=== PATIENT | female | born 1970 | race Two or more races ===

== ENCOUNTER → 2019-12-15 12:51 | Outpatient (BNVA) | payer OTHER, SELFPAY | PROVIDERS: PCP Internal Medicine; Referring Provider Internal Medicine; Visit Provider Internal Medicine Endocrinology, Diabetes & Metabolism | DX: E66.01 Morbid (severe) obesity due to excess calories (principal); Z68.41 Body mass index [BMI] 40.0-44.9, adult; E04.2 Nontoxic multinodular goiter; E55.9 Vitamin D deficiency, unspecified | CPT/HCPCS: 99204; 99214 ==

== ENCOUNTER 2019-12-16 13:47 | Outpatient (REF) | payer OTHER, SELFPAY ==
[2019-12-16 15:23] LABS: Albumin Level 4.4 g/dL (3.5-5.0)
[2019-12-16 15:25] LABS: Calcium 9.6 mg/dL (8.4-10.2)
[2019-12-16 15:55] LABS: Free T4 (Free Thyroxine) 1.08 ng/dL (0.71-1.85); Thyroid Stimulating Hormone 1.83 mIU/mL (0.32-4.0); Vitamin D 25-OH Total 24.4 ng/mL (>30)
== END 2019-12-16 13:48 | disposition home or self-care (01) ==
LOC: HO.LAB 13:47
PROVIDERS: PCP Internal Medicine; Visit Provider Internal Medicine Endocrinology, Diabetes & Metabolism
DX: E04.2 Nontoxic multinodular goiter (principal); E55.9 Vitamin D deficiency, unspecified
CPT/HCPCS: 36415; 82040; 82306; 82310; 84439; 84443

== ENCOUNTER → 2020-06-22 10:03 | Outpatient (BNVA) | payer OTHER, SELFPAY | PROVIDERS: PCP Internal Medicine; Visit Provider Internal Medicine Endocrinology, Diabetes & Metabolism ==

== ENCOUNTER 2020-06-26 14:20 | Outpatient (REF) | payer OTHER, SELFPAY ==
[2020-06-26 15:51] LABS: Free T4 (Free Thyroxine) 0.91 ng/dL (0.71-1.85); Thyroid Stimulating Hormone 1.56 uIU/mL (0.32-4.0); Vitamin D 25-OH Total 28.2 ng/mL (>30)
== END 2020-06-26 14:21 | disposition home or self-care (01) ==
LOC: HO.LAB 14:20
PROVIDERS: PCP Internal Medicine; Visit Provider Internal Medicine Endocrinology, Diabetes & Metabolism
DX: E04.2 Nontoxic multinodular goiter (principal); E55.9 Vitamin D deficiency, unspecified
CPT/HCPCS: 36415; 82306; 84439; 84443

== ENCOUNTER → 2020-08-20 10:31 | Outpatient (BNVA) | payer OTHER, SELFPAY | PROVIDERS: PCP Internal Medicine; Visit Provider Dietitian, Registered | DX: E66.01 Morbid (severe) obesity due to excess calories (principal) | CPT/HCPCS: 97802 ==

== ENCOUNTER → 2020-08-28 14:02 | Outpatient (REF) | payer OTHER, SELFPAY | LOC: HO.SL 14:02 | PROVIDERS: PCP Internal Medicine; Visit Provider Internal Medicine | DX: G47.30 Sleep apnea, unspecified (principal) | CPT/HCPCS: 95806 ==

== ENCOUNTER 2020-09-21 15:27 | Emergency (ER) | payer OTHER, SELFPAY ==
--- NOTE | ~2020-09-21 | CT_ITS ---
EXAMINATION: CT ABDOMEN AND PELVIS WITH CONTRAST CLINICAL INFORMATION: Right upper quadrant/left lower quadrant abdominal pain COMPARISON: None TECHNIQUE: Multidetector volumetric images were obtained from the superior aspect of the liver through the pubic symphysis following administration 85 mL of Omnipaque 350 intravenous contrast. Sagittal and coronal reformatted images were obtained on the technologist's workstation. Oral contrast: No This CT examination was performed using dose optimization techniques as appropriate, variously including the following: *Automated exposure control *Adjustment of mA and/or kV according to patient size (this includes techniques or standardized protocols for targeted exams where dose is matched to indication/reason for exam; i.e. extremities or head) *Use of iterative reconstruction technique DLP: 796 mGy-cm FINDINGS: LUNG BASES: The visualized lung bases are unremarkable. LIVER, GALLBLADDER, AND BILIARY TREE: The liver is normal in size, shape, and attenuation. No focal hepatic lesion or biliary ductal dilatation is present. The gallbladder is unremarkable with no evidence of radiopaque gallstones, gallbladder wall thickening, or obvious pericholecystic inflammatory changes. PANCREAS: Unremarkable. SPLEEN: Unremarkable. ADRENAL GLANDS: Unremarkable. KIDNEYS AND URETERS: The kidneys are normal in size, shape, and attenuation. There is an ill-defined hypoechoic region in the mid right kidney extending from the renal sinus outwards measuring about a centimeter in size. No hydronephrosis, hydroureter, or calculi seen. No perinephric stranding. BLADDER: Unremarkable. GASTROINTESTINAL TRACT: The small and large bowel are unremarkable. The appendix is unremarkable. ABDOMINAL WALL: No significant hernia is appreciated. LYMPH NODES: Normal. VASCULAR: Unremarkable. PELVIC VISCERA: An anteverted uterus is present. A left ovarian cyst is present measuring 2.8 cm. No free intraperitoneal fluid is seen. OSSEOUS STRUCTURES: Unremarkable. CT/CT abdomen pelvis w con IMPRESSION: 1. Small ill-defined area of hypoattenuation of uncertain significance in the right kidney could be a foci of bacterial nephritis. Please correlate with urinalysis. A follow-up renal ultrasound exam when the patient is stable may be of value. 2. Left ovarian cyst. This needs no further follow-up.
[2020-09-21 15:38] VITALS: BP 119/67; PULSE 74; RESP 16; TEMP 36.5; O2SAT 100; BMI 41.5
[2020-09-21 16:00] VITALS: BP 149/55; PULSE 73; RESP 16; O2SAT 99
--- NOTE | 2020-09-21 17:58 | ED.ABDPAIN ---
HPI - Abdominal Pain General Chief Complaint: Abdominal Pain Stated Complaint: Abdominal pain Time Seen by Provider: 09/21/20 17:46 Source: patient Mode of arrival: ambulatory History of Present Illness HPI narrative: 49-year-old female with a past medical history of anxiety/depression, GERD, nontoxic multinodular goiter, vitamin-D deficiency, presenting to the ED complaining of LLQ abdominal pain x2 days, nonradiating. Denies associated fever, nausea, vomiting, diarrhea, dysuria/hematuria, flank pain, vaginal bleeding/discharge. P.o. intake WNSuleiman BALL elicited complaint: abdominal pain Related Data Home Medications Medication Instructions Recorded Confirmed cetirizine 10 mg capsule 10 mg PO DAILY 12/15/19 09/21/20 omeprazole 20 mg capsule,delayed 20 mg PO DAILY 12/15/19 09/21/20 release ascorbate calcium (vitamin C) 500 500 mg PO DAILY 06/22/20 09/21/20 mg tablet fluticasone propionate 50 1 spray INTRANASAL BID 06/22/20 09/21/20 mcg/actuation nasal spray,suspension loratadine 10 mg tablet 10 mg PO DAILY 07/26/20 09/21/20 Previous Rx's Medication Instructions Recorded hydrocortisone-acetic acid 1 %-2 % 4 drp OTIC (EAR) LEFT TID #10 ml 05/21/20 ear drops cholecalciferol (vitamin D3) 125 125 mcg PO DAILY 90 Days #90 cap 08/16/20 mcg (5,000 unit) capsule albuterol sulfate 90 mcg/actuation 2 puff INHALATION Q4-6H PRN #8.5 g 08/27/20 aerosol inhaler meloxicam 15 mg tablet 15 mg PO DAILY #90 tab 08/27/20 dicyclomine 20 mg PO QID PRN #14 tab 09/21/20 Allergies Allergy/AdvReac Type Severity Reaction Status Date / Time No Known Allergies Allergy Verified 09/21/20 15:43 Review of Systems Review of Systems Constitutional: No Fever, No Chills, No Fatigue, No Malaise Cardiovascular: No Chest Pain, No SOB Respiratory: No Cough, No Dyspnea Gastrointestinal: No Nausea, No Vomiting, No Diarrhea, No Constipation, + Abdominal pain Genitourinary: No Dysuria, No Urinary Frequency, No Hematuria, No Flank Pain Musculoskeletal: No joint pain, No Myalgias Skin: No Skin Lesions, No rash Neuro: No Weakness, No Numbness, No Paresthesias Yes all other systems are reviewed and are negative Physical Exam Vital Signs: Vital Signs: Last Vital Signs Temp 97.7 F 09/21/20 15:38 Pulse 68 09/21/20 20:00 Resp 14 09/21/20 20:00 BP 123/43 L 09/21/20 20:00 Pulse Ox 100 09/21/20 20:00 Body Mass Index 41.5 Const: General: cooperative, healthy appearing and no acute distress Orientation/consciousness: patient oriented x3 Limitations: no limitations HENMT: Head: Yes normal to inspection Ears: hearing grossly normal bilaterally General nose exam: Normal external nose present Face and sinus: Yes normal facial exam Eyes: General: appearance normal, both eyes and all related structures EOM: EOMs intact bilaterally Neck: Neck: Yes normal visual inspection and Yes no meningeal signs Resp: Effort & Inspection: normal respiratory effort and no respiratory distress Cardio: Rate: regular rate GI: Inspection: Yes normal to inspection Palpation (GI): Soft to palpation, Tenderness to palpation present (GI) in the LLQ and in the RUQ, no guarding and not rigid : General: Yes no CVA tenderness Back/Spine/Pelvis: Back: no CVA tenderness Skin: Rashes: no rashes Wounds: no wounds Neuro: General: patient oriented x3 and no meningeal signs Gait exam (Neuro): Normal gait present Extrem: General: Yes normal to inspection Course Course Course Narrative: -labs unremarkable, UA negative CT abdomen pelvis w con IMPRESSION: 1. Small ill-defined area of hypoattenuation of uncertain significance in the right kidney could be a foci of bacterial nephritis. Please correlate with urinalysis. A follow-up renal ultrasound exam when the patient is stable may be of value. 2. Left ovarian cyst. This needs no further follow-up. >> results discussed with patient including worrisome signs and symptoms and strict return precautions, she verbalized understanding of feel it is safe for discharge to follow-up with PCP/GI MDM - Abdominal Pain MDM Narrative Medical decision making narrative: 49-year-old female with a past medical history of anxiety/depression, GERD, nontoxic multinodular goiter, vitamin-D deficiency, presenting to the ED complaining of LLQ abdominal pain x2 days, nonradiating. On exam VS as, NAD/nontoxic, abdomen soft with RUQ/LLQ TTP, no rebound or guarding, no CVAT. Concern for diverticulitis vs cholecystitis/lithiasis or pancreatitis vs colitis. Lower concern for appendicitis/UTI or pyelo/renal stone Plan: Labs, UA, CT AP, IVF, symptomatic treatment, reassess Lab Data Result diagrams: 09/21/20 18:06 09/21/20 18:06 Labs: Lab Results 09/21/20 09/21/20 09/21/20 Range/Units 18:06 18:06 18:06 WBC 9.9 (4.8-10.8) X10*3/uL RBC 4.68 (4.20-5.50) X10*6/uL Hgb 12.8 (12.0-16.0) g/dl Hct 39.2 (37-47) % MCV 83.8 (80-98) fL MCH 27.4 (27.0-33.0) pg MCHC 32.7 (31.0-35.0) g/dl RDW 13.4 (11.0-16.0) % Plt Count 307 (160-400) X10*3/uL MPV 9.4 (9.4-12.3) fL Immature Gran % (Auto) 0.2 (0.0-0.4) % Neut % (Auto) 55.0 (45-73) % Lymph % (Auto) 37.5 (20-40) % [place] % (Auto) 5.4 (2-11) % Eos % (Auto) 1.5 (0-4) % Baso % (Auto) 0.4 (0-2) % Lymph # (Auto) 3.7 (1.2-4.9) X10*3/uL [place] # (Auto) 0.5 (0.1-1.2) X10*3/uL Eos # (Auto) 0.2 (0.0-0.4) X10*3/uL Baso # (Auto) 0.0 (0.0-0.2) X10*3/uL Abs Immat Gran (auto) 0.02 (0.00-0.03) X10*3/uL Absolute Neuts (auto) 5.5 (2.0-8.3) X10*3/uL Absolute Nucleated RBC 0.000 (0.0-0.012) X10*3/uL Nucleated RBC % (auto) 0.0 (0.0-0.2) /100WBC Sodium 139 (135-145) mmol/L Potassium 4.0 (3.3-5.1) mmol/L Chloride 105 (96-108) mmol/L Carbon Dioxide 24 (22-29) mmol/L Anion Gap 14 (12-20) BUN 9 (9-16) mg/dL Creatinine 0.75 (0.5-1.4) mg/dL Estim Creat Clear Calc 104.3 Estimated GFR > 60 Random Glucose 91 (60-115) mg/dL Calcium 9.3 (8.4-10.2) mg/dL Magnesium 1.9 (1.6-2.6) mg/dL Total Bilirubin 0.4 (0.0-1.0) mg/dL Direct Bilirubin 0.2 (0.0-0.5) mg/dL AST 17 (5-31) U/L ALT 8 (0-31) U/L Alkaline Phosphatase 89 (39-117) U/L Total Protein 7.0 (6.5-8.0) g/dL Albumin 4.0 (3.5-5.0) g/dL Lipase 35 (8-78) U/L Urine Color Urine Appearance Urine pH (5.0-8.0) Ur Specific [place] (1.005-1.025) Urine Protein (NEG-TRACE) MG/DL Urine Glucose (UA) (NEG) MG/DL Urine Ketones (NEG) MG/DL Urine Blood (NEG) Urine Nitrite (NEG) Ur Leukocyte Esterase (NEG) Urine Test NEGATIVE (NEGATIVE) 09/21/20 Range/Units 18:06 WBC (4.8-10.8) X10*3/uL RBC (4.20-5.50) X10*6/uL Hgb (12.0-16.0) g/dl Hct (37-47) % MCV (80-98) fL MCH (27.0-33.0) pg MCHC (31.0-35.0) g/dl RDW (11.0-16.0) % Plt Count (160-400) X10*3/uL MPV (9.4-12.3) fL Immature Gran % (Auto) (0.0-0.4) % Neut % (Auto) (45-73) % Lymph % (Auto) (20-40) % [place] % (Auto) (2-11) % Eos % (Auto) (0-4) % Baso % (Auto) (0-2) % Lymph # (Auto) (1.2-4.9) X10*3/uL [place] # (Auto) (0.1-1.2) X10*3/uL Eos # (Auto) (0.0-0.4) X10*3/uL Baso # (Auto) (0.0-0.2) X10*3/uL Abs Immat Gran (auto) (0.00-0.03) X10*3/uL Absolute Neuts (auto) (2.0-8.3) X10*3/uL Absolute Nucleated RBC (0.0-0.012) X10*3/uL Nucleated RBC % (auto) (0.0-0.2) /100WBC Sodium (135-145) mmol/L Potassium (3.3-5.1) mmol/L Chloride (96-108) mmol/L Carbon Dioxide (22-29) mmol/L Anion Gap (12-20) BUN (9-16) mg/dL Creatinine (0.5-1.4) mg/dL Estim Creat Clear Calc Estimated GFR Random Glucose (60-115) mg/dL Calcium (8.4-10.2) mg/dL Magnesium (1.6-2.6) mg/dL Total Bilirubin (0.0-1.0) mg/dL Direct Bilirubin (0.0-0.5) mg/dL AST (5-31) U/L ALT (0-31) U/L Alkaline Phosphatase (39-117) U/L Total Protein (6.5-8.0) g/dL Albumin (3.5-5.0) g/dL Lipase (8-78) U/L Urine Color YELLOW Urine Appearance CLEAR Urine pH 6.0 (5.0-8.0) Ur Specific [place] 1.020 (1.005-1.025) Urine Protein NEG (NEG-TRACE) MG/DL Urine Glucose (UA) NEG (NEG) MG/DL Urine Ketones NEG (NEG) MG/DL Urine Blood NEG (NEG) Urine Nitrite NEG (NEG) Ur Leukocyte Esterase NEG (NEG) Urine Test (NEGATIVE) Discharge Plan Discharge Clinical Impression: Abdominal pain Patient Disposition: Home, Self-Care Instructions: Abdominal Pain (ED) Additional Instructions: your blood work and urine were reassuring today in the ED Your CT scan showed a left ovarian cyst which are aware of, and a small ill-defined area in your right kidney however your urine and blood work were reassuring Your staying hydrated at home Lillie will help with abdominal cramping Follow-up with her primary care doctor as well as a GI doctor If her symptoms persist or worsen, become unbearable, you develop fever, persistent nausea or vomiting please return to the ED Prescriptions: New dicyclomine 20 mg tablet 20 mg PO QID PRN (Reason: abdominal cramping) Qty: 14 RF: 0 No Action hydrocortisone-acetic acid 1-2 % drops 4 drp otic (ear) left TID Qty: 10 RF: 0 cholecalciferol (vitamin D3) 125 mcg (5,000 unit) capsule 125 mcg PO DAILY 90 Days Qty: 90 RF: 2 meloxicam 15 mg tablet 15 mg PO DAILY Qty: 90 RF: 0 albuterol sulfate [Ventolin HFA] 90 mcg/actuation HFA aerosol inhaler 2 puff inhalation Q4-6H PRN (Reason: shortness of breath or wheezing) Qty: 8.5 RF: 2 loratadine [Allergy Relief (loratadine)] 10 mg tablet 10 mg PO DAILY RF: 0 omeprazole 20 mg capsule,delayed release(DR/EC) 20 mg PO DAILY RF: 0 All Day Allergy (cetirizine) 10 mg capsule 10 mg PO DAILY RF: 0 fluticasone propionate 50 mcg/actuation spray,suspension 1 spray intranasal BID RF: 0 ascorbate calcium (vitamin C) 500 mg tablet 500 mg PO DAILY RF: 0 Referrals: Raymond Sarabia MD [Physician] - 1 week (as needed) [facility] Past Medical History Attestation statement: The following information was validated with the patient. Medical History Anxiety and depression GERD (gastroesophageal reflux disease) Morbid obesity Non-toxic multinodular goiter Vitamin D deficiency Surgical History History of esophagogastroduodenoscopy (EGD) Hx of tonsillectomy Hx of tubal ligation Family History Family History Mother Asthma Eye cancer Father Heart attack High blood pressure Social History Social History Housing: Apartment Alcohol intake: never Patient Tobacco Use Status: Never used Tobacco Advance Directives: No Advance Directives Information Provided: No Patient : No Current occupational status: employed
[2020-09-21 18:00] VITALS: BP 149/55; PULSE 73; RESP 16; O2SAT 99
[2020-09-21] MEDS: 0.9 % Sodium Chloride 1,000 ML 999 ML IVCONT (18:08)
[2020-09-21] MEDS: Ketorolac Tromethamine 15 MG/ML VIAL IVPUSH (18:11)
[2020-09-21] MEDS: ondansetron HCL 4 MG/2 ML VIAL IVPUSH (18:11)
[2020-09-21] MEDS: Famotidine/PF 20 MG/2 ML VIAL IVPUSH (18:11)
[2020-09-21 18:16] LABS: MANUAL DIFF FLAG NO
[2020-09-21 18:18] LABS: Basophils Percent Auto 0.4 % (0-2); Eosinophils Absolute Auto 0.2 X10*3/uL (0.0-0.4); Eosinophils Percent Auto 1.5 % (0-4); Hematocrit 39.2 % (37-47); Hemoglobin 12.8 g/dl (12.0-16.0); Imm Gran Abs Auto 0.02 X10*3/uL (0.00-0.03); Imm Gran Pct Auto 0.2 % (0.0-0.4); Lymphocytes Absolute Auto 3.7 X10*3/uL (1.2-4.9); Lymphocytes Percent Auto 37.5 % (20-40); Mean Corpuscular HGB Conc 32.7 g/dl (31.0-35.0); Mean Corpuscular Hemoglobin 27.4 pg (27.0-33.0); Mean Corpuscular Volume 83.8 fL (80-98); Mean Platelet Volume 9.4 fL (9.4-12.3); Monocytes Absolute Auto 0.5 X10*3/uL (0.1-1.2); Monocytes Percent Auto 5.4 % (2-11); Neutrophils Absolute Auto 5.5 X10*3/uL (2.0-8.3); Platelet Count 307 X10*3/uL (160-400); Red Blood Count 4.68 X10*6/uL (4.20-5.50); Red Cell Distribution Width 13.4 % (11.0-16.0); White Blood Count 9.9 X10*3/uL (4.8-10.8)
[2020-09-21 18:21] LABS: Glucose Urine UA NEG (NEG); Leukocyte Esterase Urine NEG (NEG); Nitrite Urine NEG (NEG); Urine Blood NEG (NEG); Urine Ketones NEG (NEG); Urine Protein NEG (NEG-TRACE)
[2020-09-21 18:26] LABS: Appearance Urine CLEAR; Color Urine YELLOW; UPreg QC Valid YES; Urine Pregnancy NEGATIVE (NEGATIVE)
[2020-09-21 18:51] LABS: Alanine Aminotransferase 8 U/L (0-31); Alkaline Phosphatase 89 U/L (39-117); Anion Gap 14 (12-20); Aspartate Amino Transferase 17 U/L (5-31); Bilirubin Direct 0.2 mg/dL (0.0-0.5); Bilirubin Total 0.4 mg/dL (0.0-1.0); Blood Urea Nitrogen 9 mg/dL (9-16); Calcium 9.3 mg/dL (8.4-10.2); Carbon Dioxide 24 mmol/L (22-29); Chloride 105 mmol/L (96-108); Creatinine Clr Calc Pharmacy 104.3; Estimated Glomerular Filt Rate > 60; Glucose Random 91 mg/dL (60-115); Lipase 35 U/L (8-78); Magnesium 1.9 mg/dL (1.6-2.6); Sodium 139 mmol/L (135-145)
[2020-09-21] MEDS: iohexoL 350 MG/ML 100 ML INFUS..BTL IV (19:56)
[2020-09-21 20:00] VITALS: BP 123/43; PULSE 68; RESP 14; O2SAT 100
== END 2020-09-21 21:58 | disposition home or self-care (01) ==
PROVIDERS: Physician Assistant; Emergency Provider Internal Medicine; PCP Internal Medicine
DX: R10.32 Left lower quadrant pain (principal); F41.9 Anxiety disorder, unspecified; Z79.899 Other long term (current) drug therapy
CPT/HCPCS: 36415; 74177; 80048; 80076; 81003; 81025; 83690; 83735; 85025; 96365; 96375; 99284; J1885; J2405; Q9967

== ENCOUNTER 2020-10-18 21:22 | Emergency (ER) | payer OTHER, SELFPAY ==
--- NOTE | ~2020-10-18 | XR_ITS ---
EXAMINATION: XR FOOT, LEFT CLINICAL INFORMATION: Left foot pain COMPARISON: None TECHNIQUE: AP, lateral, and oblique views of the left foot. FINDINGS: The bones and soft tissues are normal. A large os trigonum is present. No fracture. Alignment is anatomic. Joint spaces are maintained. XR/XR foot LT min 3V IMPRESSION: No acute pathology.
[2020-10-18 21:43] VITALS: BP 121/70; PULSE 74; RESP 18; TEMP 36.8; O2SAT 97; BMI 40.6
--- NOTE | 2020-10-18 23:09 | ED_ITS ---
HPI - General Adult General Chief complaint: Extremity Injury, Lower Stated complaint: foot pain Time Seen by Provider: 10/18/20 23:02 Source: patient Mode of arrival: ambulatory Limitations: no limitations History of Present Illness HPI narrative: This is 49 years old the female presented to the emergency department with the chief complaint left foot pain for weeks, there is no injury, no fever no vomiting no other systemic symptoms. She states that she has an appointment with the process designer but has not seen him yet. She has taken meloxicam everyday despite that he still in pain Onset (ago): week(s) Location: lower extremity (left foot pain) Radiation: non-radiation Severity: moderate Quality: burning Pain Consistency: constant Relieving factors: none Related Data Home Medications Medication Instructions Recorded Confirmed cetirizine 10 mg capsule (All Day 10 mg PO DAILY 12/15/19 09/21/20 Allergy (cetirizine)) omeprazole 20 mg capsule,delayed 20 mg PO DAILY 12/15/19 09/21/20 release ascorbate calcium (vitamin C) 500 500 mg PO DAILY 06/22/20 09/21/20 mg tablet fluticasone propionate 50 1 spray INTRANASAL BID 06/22/20 09/21/20 mcg/actuation nasal spray,suspension loratadine 10 mg tablet (Allergy 10 mg PO DAILY 07/26/20 09/21/20 Relief (loratadine)) Previous Rx's Medication Instructions Recorded hydrocortisone-acetic acid 1 %-2 % 4 drp OTIC (EAR) LEFT TID #10 ml 05/21/20 ear drops cholecalciferol (vitamin D3) 125 125 mcg PO DAILY 90 Days #90 cap 08/16/20 mcg (5,000 unit) capsule albuterol sulfate 90 mcg/actuation 2 puff INHALATION Q4-6H PRN #8.5 g 08/27/20 aerosol inhaler (Ventolin HFA) meloxicam 15 mg tablet 15 mg PO DAILY #90 tab 08/27/20 dicyclomine 20 mg tablet 20 mg PO QID PRN #14 tab 09/21/20 oxycodone 5 mg capsule 5 mg PO Q8H PRN #12 cap 10/18/20 Allergies Allergy/AdvReac Type Severity Reaction Status Date / Time No Known Allergies Allergy Verified 10/18/20 21:42 Review of Systems Review of Systems: Yes all other systems are reviewed and are negative Constitutional: Constitutional: Reports no additional constitutional complaints ENT: Reports system reviewed and no additional complaints, except as documented Cardiovascular: Cardiovascular: Reports no additional cardiovascular complaints Respiratory: Respiratory: Reports no additional respiratory complaints Musculoskeletal: Musculoskeletal: Reports no additional musculoskeletal complaints Integumentary/Breasts: Skin/Breast: Reports system reviewed and no additional complaints, except as docu PMFSH Past Medical History Attestation statement: The following information was validated with the patient. Medical History Anxiety and depression GERD (gastroesophageal reflux disease) Morbid obesity Non-toxic multinodular goiter Vitamin D deficiency Surgical History History of esophagogastroduodenoscopy (EGD) Hx of tonsillectomy Hx of tubal ligation Family History Family History Mother Asthma Eye cancer Father Heart attack High blood pressure Social History Social History Housing: Apartment Alcohol intake: never Patient Tobacco Use Status: Never used Tobacco Advance Directives: No Advance Directives Information Provided: No Patient : No Current occupational status: employed Physical Exam Vital Signs: Vital Signs: Last Vital Signs Temp 98.3 F 10/18/20 21:43 Pulse 74 10/18/20 21:43 Resp 18 10/18/20 21:43 BP 121/70 10/18/20 21:43 Pulse Ox 97 10/18/20 21:43 Body Mass Index 40.6 Const: General: cooperative and anxious HENMT: Head: Yes normal to inspection Neck: Neck: Yes normal visual inspection, Yes full ROM and Yes no lymphadenopathy Chest: Chest palpation & inspection: normal inspection of the chest and normal palpation of entire chest wall Resp: Effort & Inspection: normal respiratory effort Cardio: Jugular venous distension: no JVD Palpation: normal PMI Rate: regular rate GI: Inspection: Yes normal to inspection Palpation (GI): Soft to palpation Extrem: Other: There is tenderness in the plantar aspect of the left foot, no deformity no redness Medical Decision Making Imaging Data foot: My impression: No fx Discharge Plan Discharge Clinical Impression: Plantar fasciitis Patient Disposition: Home, Self-Care Instructions: Plantar Fasciitis (ED), Plantar Fasciitis Exercises (ED) Prescriptions: New oxycodone 5 mg capsule 5 mg PO Q8H PRN (Reason: pain) Qty: 12 RF: 0 No Action hydrocortisone-acetic acid 1-2 % drops 4 drp otic (ear) left TID Qty: 10 RF: 0 cholecalciferol (vitamin D3) 125 mcg (5,000 unit) capsule 125 mcg PO DAILY 90 Days Qty: 90 RF: 2 dicyclomine 20 mg tablet 20 mg PO QID PRN (Reason: abdominal cramping) Qty: 14 RF: 0 meloxicam 15 mg tablet 15 mg PO DAILY Qty: 90 RF: 0 albuterol sulfate [Ventolin HFA] 90 mcg/actuation HFA aerosol inhaler 2 puff inhalation Q4-6H PRN (Reason: shortness of breath or wheezing) Qty: 8.5 RF: 2 loratadine [Allergy Relief (loratadine)] 10 mg tablet 10 mg PO DAILY RF: 0 omeprazole 20 mg capsule,delayed release(DR/EC) 20 mg PO DAILY RF: 0 All Day Allergy (cetirizine) 10 mg capsule 10 mg PO DAILY RF: 0 fluticasone propionate 50 mcg/actuation spray,suspension 1 spray intranasal BID RF: 0 ascorbate calcium (vitamin C) 500 mg tablet 500 mg PO DAILY RF: 0 Referrals: Po,Tc Mendoza MD [Primary Care Provider] - 2 days Interventions: ED Discharge Assessment Last Done: 10/19/20 00:10 Discharge Date/Time: 10/19/20 00:12
== END 2020-10-19 00:12 | disposition home or self-care (01) ==
PROVIDERS: Emergency Provider Emergency Medicine; PCP Internal Medicine
DX: M72.2 Plantar fascial fibromatosis (principal); M79.672 Pain in left foot; Z79.899 Other long term (current) drug therapy
CPT/HCPCS: 73630; 99283

== ENCOUNTER → 2020-10-30 13:59 | Outpatient (BNVA) | payer OTHER, SELFPAY | PROVIDERS: PCP Internal Medicine; Visit Provider Dietitian, Registered | DX: E66.01 Morbid (severe) obesity due to excess calories (principal); Z68.41 Body mass index [BMI] 40.0-44.9, adult | CPT/HCPCS: 97803 ==

== ENCOUNTER → 2020-12-13 13:58 | Outpatient (BNVA) | payer OTHER, SELFPAY | PROVIDERS: PCP Internal Medicine; Visit Provider Dietitian, Registered | DX: E66.01 Morbid (severe) obesity due to excess calories (principal); Z68.41 Body mass index [BMI] 40.0-44.9, adult | CPT/HCPCS: 97803 ==

== ENCOUNTER 2020-12-28 08:27 | Outpatient (REF) | payer OTHER, SELFPAY ==
--- NOTE | ~2020-12-28 | MM_ITS ---
EXAMINATION: MM SCREENING DIGITAL BREAST TOMOSYNTHESIS, BILATERAL CLINICAL INFORMATION: Screening. Asymptomatic. The lifetime risk of breast cancer based on the Tyrer-Cuzick Model is 7%. COMPARISON: Mammography: 11/03/2019, 11/01/2018, 10/31/2015 (baseline). TECHNIQUE: Digital breast tomosynthesis is performed in both the craniocaudal and mediolateral oblique views along with computer-aided detection (CAD). Synthesized 2D images are generated from the tomosynthesis. FINDINGS: There are scattered areas of fibroglandular density (ACR BI-RADS breast composition Category b). There are no significant masses, abnormal calcifications, or other abnormalities. The axilla and skin contours are unremarkable. There are no significant changes from prior exams. MM/MM tomosynthesis screening BI IMPRESSION: No mammographic evidence of malignancy. ASSESSMENT: BI-RADS 1: Negative RECOMMENDATION: Routine annual mammography screening. This patient's information was entered into a reminder system with a target due date for their next mammogram.
== END 2020-12-28 08:28 | disposition home or self-care (01) ==
LOC: HO.MAMMO 08:27
PROVIDERS: Visit Provider Internal Medicine
DX: Z12.31 Encounter for screening mammogram for malignant neoplasm of breast (principal)
CPT/HCPCS: 77063; 77067

== ENCOUNTER 2021-06-28 15:52 | Outpatient (REF) | payer OTHER, SELFPAY ==
--- NOTE | ~2021-06-28 | US_ITS ---
EXAMINATION: US THYROID CLINICAL INFORMATION: Nontoxic multinodular goiter. COMPARISON: US Thyroid 10/25/2018 and 07/15/2017. TECHNIQUE: Linear transducer grayscale and color Doppler examination with attention to the region of the thyroid. FINDINGS: SIZE: Measurements of the solitary left thyroid lobe and nodules are given in sagittal, anteroposterior and transverse dimensions respectively. Right Thyroid Lobe: Surgically absent. Left Thyroid Lobe: 4.1 x 1.1 x 1.4 cm, volume 3.3 mL. Previously 5.0 x 1.1 x 1.6 cm, volume 4.6 mL. Parenchyma: The gland echotexture is homogeneous. Thyroid vascularity is normal. Isthmus: 0.3 cm in maximum AP dimension. Previously 0.4 cm. Estimated total number of nodules greater than or equal to 1 cm: 0. Treasury Director nodules are described as follows: 1. Location: Left superior. Size: 0.1 x 0.1 x 0.1 cm, volume 0.001 mL. Previously: 0.3 x 0.3 x 0.3 cm, volume 0.01 mL. Nodule characteristics: Composition: Cystic(0). ACR TI-RADS total points: 0 ACR TI-RADS category: 1 Significant change in size (>/= 20% in 2 dimensions and minimal increase of 2 mm or 50% or greater increase in volume): No 2. Location: Left mid/lateral. Size: 0.3 x 0.2 x 0.1 cm, volume 0.005 mL. Previously: 0.2 x 0.2 x 0.2 cm, volume 0.004 mL. Nodule characteristics: Composition: Mixed cystic and solid (1). Echogenicity: Isoechoic (1). Shape: Not taller than wide (0). Margins: Smooth (0). Echogenic Foci: None (0). ACR TI-RADS total points: 2 ACR TI-RADS category: 2 Significant change in size (>/= 20% in 2 dimensions and minimal increase of 2 mm or 50% or greater increase in volume): No 3. Location: Left inferior. Size: 0.3 x 0.3 x 0.4 cm, volume 0.02 mL. Previously: 0.3 x 0.2 x 0.3 cm, volume 0.01 mL. Nodule characteristics: Composition: Mixed cystic and solid (1). Echogenicity: Isoechoic (1). Shape: Not taller than wide (0). Margins: Smooth (0). Echogenic Foci: None (0). ACR TI-RADS total points: 2 ACR TI-RADS category: 2 Significant change in size (>/= 20% in 2 dimensions and minimal increase of 2 mm or 50% or greater increase in volume): No NODES: Within the lower right neck there is a 0.6 x 1.4 x 0.8 cm lymph node. Within the lower left neck there is a 0.6 x 1.5 x 0.7 cm lymph node. US/US thyroid IMPRESSION: -A few sub-5 mm nodules are again noted within the left thyroid lobe, relatively stable. No follow-up imaging warranted per ACR recommendations. -Lymph nodes noted within the right and left neck as detailed above. Clinical correlation recommended. ACR TI-RADS RECOMMENDATION REFERENCE: Ultrasound-guided fine-needle aspiration, followup ultrasound, no further follow up. * TR1 (0 point) and TR 2 (2 points): No FNA or follow up
== END 2021-06-28 15:53 | disposition home or self-care (01) ==
LOC: HO.US 15:52
PROVIDERS: PCP Internal Medicine; Visit Provider Internal Medicine Endocrinology, Diabetes & Metabolism
DX: E04.2 Nontoxic multinodular goiter (principal)
CPT/HCPCS: 76536

== ENCOUNTER 2021-09-23 07:46 | Outpatient (REF) | payer OTHER, SELFPAY ==
[2021-09-23 08:19] LABS: MANUAL DIFF FLAG NO
[2021-09-23 08:41] LABS: Basophils Percent Auto 0.4 % (0-2); Eosinophils Absolute Auto 0.2 X10*3/uL (0.0-0.4); Eosinophils Percent Auto 2.2 % (0-4); Hematocrit 38.9 % (37.0-47.0); Hemoglobin 12.7 g/dl (12.0-16.0); Imm Gran Abs Auto 0.02 X10*3/uL (0.00-0.03); Imm Gran Pct Auto 0.3 % (0.0-0.4); Lymphocytes Absolute Auto 3.1 X10*3/uL (1.2-4.9); Lymphocytes Percent Auto 44.3 % (20-40); Mean Corpuscular HGB Conc 32.6 g/dl (31.0-35.0); Mean Corpuscular Hemoglobin 27.1 pg (27.0-33.0); Mean Corpuscular Volume 82.9 fL (80.0-98.0); Mean Platelet Volume 9.4 fL (9.4-12.3); Monocytes Absolute Auto 0.5 X10*3/uL (0.1-1.2); Monocytes Percent Auto 6.5 % (2-11); Neutrophils Absolute Auto 3.2 x10*3/uL (2.0-8.3); Neutrophils Percent Auto 46.3 % (45-73); Platelet Count 254 X10*3/uL (160-400); Red Blood Count 4.69 X10*6/uL (4.20-5.50); Red Cell Distribution Width 13.8 % (11.0-16.0)
[2021-09-23 09:02] LABS: Alanine Aminotransferase 13 U/L (0-31); Albumin Level 4.1 g/dL (3.5-5.0); Alkaline Phosphatase 94 U/L (39-117); Anion Gap 9 (12-20); Aspartate Amino Transferase 16 U/L (5-31); Bilirubin Total 0.4 mg/dL (0.0-1.0); Blood Urea Nitrogen 10 mg/dL (9-16); Calcium 9.3 mg/dL (8.4-10.2); Carbon Dioxide 28 mmol/L (22-29); Chloride 106 mmol/L (96-108); Cholesterol 155 mg/dL; Estimated Glomerular Filt Rate > 60; Glucose Random 103 mg/dL (60-115); HDL Cholesterol 56 mg/dL; LDL Cholesterol Calculated 83 mg/dl; Sodium 139 mmol/L (135-145); Triglycerides 80 mg/dL
[2021-09-23 09:16] LABS: Free T4 (Free Thyroxine) 0.91 ng/dL (0.71-1.85); Thyroid Stimulating Hormone 2.28 uIU/mL (0.32-4.0); Vitamin D 25-OH Total 21.6 ng/mL (>30)
[2021-09-23 11:21] LABS: Folate 14.5 ng/mL (> or = 4.0); Vitamin B12 311 pg/mL (200-900)
== END 2021-09-23 07:47 | disposition home or self-care (01) ==
LOC: HO.LAB 07:46
PROVIDERS: PCP Internal Medicine; Visit Provider Internal Medicine Endocrinology, Diabetes & Metabolism
DX: E04.2 Nontoxic multinodular goiter (principal); E55.9 Vitamin D deficiency, unspecified; E66.01 Morbid (severe) obesity due to excess calories; E78.00 Pure hypercholesterolemia, unspecified
CPT/HCPCS: 36415; 80053; 80061; 82306; 82607; 82746; 84439; 84443; 85025

== ENCOUNTER 2021-11-06 07:41 | Outpatient (REF) | payer OTHER, SELFPAY ==
--- NOTE | 2021-11-06 08:26 | P.BOP_ITS ---
Brief Operative Note Date of Service: 11/06/21 Pre-op diagnosis: Abnormal lymph node Procedure: Cervical lymph node mapping was completed on this Patient after her official US read a concerning appearing L level IV lymph node. There was finding of a 0.8 cm lobulated appearing supraclavicular lymph node on the L. FNA biopsy of this lymph node was not possible as the patient was unable to tolerate the US and the procedure had to be aborted early. She will have FNA biopsy of this lymph node completed by IR and follow up with her Metal [employer] Dr. Quan. Surgeon: Jessi Burleson, DO Was an Assurance Manager Insurance used for this Procedure?: No Estimated blood loss (mL): 0
== END 2021-11-06 07:42 | disposition home or self-care (01) ==
LOC: HO.US 07:41
PROVIDERS: Visit Provider Internal Medicine Endocrinology, Diabetes & Metabolism
DX: E04.2 Nontoxic multinodular goiter (principal)
CPT/HCPCS: 76536

== ENCOUNTER 2021-11-13 12:54 | Outpatient (REF) | payer OTHER, SELFPAY ==
--- NOTE | ~2021-11-13 | US_ITS ---
EXAMINATION: ULTRASOUND-GUIDED FINE-NEEDLE ASPIRATION CLINICAL INFORMATION: Painful left cervical lymphadenopathy. History of nontoxic multinodular goiter post right thyroidectomy. COMPARISON: Previous ultrasound 11/06/2021. TECHNIQUE: Procedure and risks and benefits including bleeding and infection were discussed with the patient and informed consent was obtained. The left neck was prepped and draped in the usual sterile fashion. The skin and soft tissues were anesthetized with 1% lidocaine plain. Using a 25-gauge needle, attempted access at a left cervical lymph node was made. The patient experienced severe pain, was very anxious and was unable to suspend respiration. Fine-needle aspiration was not attempted. Exam should be rescheduled with conscious sedation if clinically indicated. FINDINGS: There are several left cervical lymph nodes. Lymph nodes are upper normal in size and demonstrate normal ultrasound morphology and flow. US/US guided fine needle asp IMPRESSION: Left cervical lymph node ultrasound-guided fine-needle aspiration not performed due to patient pain, anxiety and movement. Exam could be rescheduled with conscious sedation if clinically indicated.
[2021-11-13] MEDS: Lidocaine HCl 1 % MPF 5 ML VIAL 4 ML SUBCUT (14:20)
== END 2021-11-13 12:55 | disposition home or self-care (01) ==
LOC: HO.US 12:54
PROVIDERS: Visit Provider Internal Medicine Endocrinology, Diabetes & Metabolism
DX: E04.2 Nontoxic multinodular goiter (principal); R59.1 Generalized enlarged lymph nodes
CPT/HCPCS: 10005

== ENCOUNTER 2021-11-20 11:30 | Day surgery (SDC) | payer OTHER, SELFPAY ==
--- NOTE | ~2021-11-20 | US_ITS ---
EXAMINATION: US ULTRASOUND-GUIDED FINE-NEEDLE ASPIRATION CLINICAL INFORMATION: Left neck abnormal lymph node. COMPARISON: Previous neck ultrasound October 2021. TECHNIQUE: Procedure and risks and benefits including bleeding and infection were discussed with the patient and informed consent was obtained. The left neck was prepped and draped in the usual sterile fashion. The skin and soft tissues were anesthetized with 1% lidocaine plain. Using ultrasound guidance and a 25-gauge needle, access to the largest left cervical lymph node in the supraclavicular region was obtained. Three 25-gauge FNA aspirates were obtained. Conscious sedation was provided by a registered nurse under my direct supervision. The patient received Versed 1.5 mg and fentanyl 75 mg IV during the procedure. Conscious sedation was provided by registered nurse under my direct supervision. Total sedation time was 19 minutes. FINDINGS: The largest left cervical lymph node in the supraclavicular region was targeted for fine-needle aspiration. This measures 1 cm in transverse dimension. Left cervical lymph nodes are normal in morphology and are normal to upper normal in size. US/US guided fine needle asp IMPRESSION: Ultrasound-guided left cervical lymph node fine-needle aspiration.
[2021-11-20 09:26] VITALS: BMI 40.2
[2021-11-20 11:57] VITALS: BP 130/59; PULSE 67; RESP 18; TEMP 36.1; O2SAT 98
[2021-11-20 12:04] LABS: MANUAL DIFF FLAG NO
[2021-11-20 12:06] LABS: Basophils Absolute Auto 0.1 X10*3/uL (0.0-0.2); Basophils Percent Auto 0.5 % (0-2); Eosinophils Absolute Auto 0.1 X10*3/uL (0.0-0.4); Hematocrit 39.2 % (37.0-47.0); Hemoglobin 12.8 g/dl (12.0-16.0); Imm Gran Abs Auto 0.03 X10*3/uL (0.00-0.03); Imm Gran Pct Auto 0.3 % (0.0-0.4); Lymphocytes Absolute Auto 3.6 X10*3/uL (1.2-4.9); Lymphocytes Percent Auto 34.5 % (20-40); Mean Corpuscular HGB Conc 32.7 g/dl (31.0-35.0); Mean Corpuscular Hemoglobin 27.5 pg (27.0-33.0); Mean Corpuscular Volume 84.1 fL (80.0-98.0); Mean Platelet Volume 9.1 fL (9.4-12.3); Monocytes Absolute Auto 0.6 X10*3/uL (0.1-1.2); Neutrophils Percent Auto 57.7 % (45-73); Platelet Count 309 X10*3/uL (160-400); Red Blood Count 4.66 X10*6/uL (4.20-5.50); Red Cell Distribution Width 13.4 % (11.0-16.0); White Blood Count 10.3 X10*3/uL (4.8-10.8)
[2021-11-20 12:16] LABS: Prothrombin Time 11.3 SEC (10.0-13.1)
[2021-11-20] MEDS: Lidocaine HCl 1 % MPF 5 ML VIAL 4 ML SUBCUT (14:24)
[2021-11-20 14:26] VITALS: BP 105/51; PULSE 62; RESP 13; TEMP 36.3; O2SAT 97
[2021-11-20 14:41] VITALS: BP 104/64; PULSE 79; RESP 20; O2SAT 97
[2021-11-20] MEDS: Acetaminophen 325 MG TABLET 650 MG PO (14:47)
[2021-11-20 14:56] VITALS: BP 109/87; PULSE 67; RESP 20; O2SAT 97
[2021-11-20 15:11] VITALS: BP 102/44; PULSE 72; RESP 20; O2SAT 98
[2021-11-20 15:26] VITALS: BP 104/64; PULSE 76; RESP 20; TEMP 36.3; O2SAT 98
== END 2021-11-20 15:35 | disposition home or self-care (01) ==
PROVIDERS: PCP Internal Medicine; Visit Provider Radiology Diagnostic Radiology
DX: E04.2 Nontoxic multinodular goiter (principal)
CPT/HCPCS: 10005; 36415; 85025; 85610; 85730; 88172; 88173; 88184; 88185; 88300; 99152; J2250; J3010

== ENCOUNTER → 2021-12-13 12:56 | Outpatient (BNVA) | payer OTHER, SELFPAY | PROVIDERS: PCP Internal Medicine; Visit Provider Internal Medicine Endocrinology, Diabetes & Metabolism | DX: E55.9 Vitamin D deficiency, unspecified (principal); E04.2 Nontoxic multinodular goiter | CPT/HCPCS: 99212 ==

== ENCOUNTER 2022-01-01 07:36 | Outpatient (REF) | payer OTHER, SELFPAY ==
--- NOTE | ~2022-01-01 | MM_ITS ---
EXAMINATION: MM SCREENING DIGITAL BREAST TOMOSYNTHESIS, BILATERAL CLINICAL INFORMATION: Screening. Asymptomatic. The lifetime risk of breast cancer based on the Tyrer-Cuzick Model is 6.7%. COMPARISON: Mammography: December 28, 2020 and studies dating back to October 31, 2015 TECHNIQUE: Digital breast tomosynthesis is performed in both the craniocaudal and mediolateral oblique views along with computer-aided detection (CAD). Synthesized 2D images are generated from the tomosynthesis. FINDINGS: There are scattered areas of fibroglandular density (ACR BI-RADS breast composition Category b). There are no significant masses, abnormal calcifications, or other abnormalities. MM/MM tomosynthesis screening BI IMPRESSION: No significant changes ASSESSMENT: BI-RADS 1: Negative RECOMMENDATION: Routine annual mammography screening. This patient's information was entered into a reminder system with a target due date for their next mammogram.
== END 2022-01-01 07:37 | disposition home or self-care (01) ==
LOC: HO.MAMMO 07:36
PROVIDERS: PCP Internal Medicine; Visit Provider Internal Medicine
DX: Z12.31 Encounter for screening mammogram for malignant neoplasm of breast (principal)
CPT/HCPCS: 77063; 77067

== ENCOUNTER 2022-04-04 17:57 | Outpatient (REF) | payer OTHER, SELFPAY ==
--- NOTE | ~2022-04-04 | US_ITS ---
EXAMINATION: US VENOUS ULTRASOUND WITH DOPPLER LOWER EXTREMITY, LEFT CLINICAL INFORMATION: Pain COMPARISON: None TECHNIQUE: Ultrasound of the deep veins is performed from the hip to the calf with compression sonography and color and pulse Doppler assessment. Spectral analysis with color-flow imaging is performed. FINDINGS: The patient could not tolerate compression in the thigh. There is normal vascular flow, respiratory variation and augmented flow. The visualized common femoral vein, superficial femoral vein, profunda femoral vein, popliteal vein, and the trifurcation region shows no evidence of deep venous thrombosis. Visualized calf veins demonstrate normal vascular flow. There is no significant popliteal fossa cyst. . If the patient's symptoms persist, followup ultrasound in 5 days 7 days might be of value to exclude proximal propagation from a non-visualized calf vein. US/US venous duplex LE LT IMPRESSION: No DVT demonstrated in the left lower extremity. Study technically limited, patient unable to tolerate compression evaluation of the thigh. If the patient's symptoms persist, followup ultrasound in 5 days 7 days might be of value to exclude proximal propagation from a non-visualized calf vein.
== END 2022-04-04 17:58 | disposition home or self-care (01) ==
LOC: HO.US 17:57
PROVIDERS: PCP Internal Medicine; Visit Provider Internal Medicine
DX: R60.0 Localized edema (principal)
CPT/HCPCS: 93971

== ENCOUNTER 2022-04-09 07:48 | Outpatient (REF) | payer OTHER, SELFPAY ==
[2022-04-09 08:05] LABS: MANUAL DIFF FLAG NO
[2022-04-09 08:33] LABS: Basophils Percent Auto 0.5 % (0-2); Eosinophils Absolute Auto 0.1 X10*3/uL (0.0-0.4); Hematocrit 42.7 % (37.0-47.0); Imm Gran Abs Auto 0.03 X10*3/uL (0.00-0.03); Imm Gran Pct Auto 0.4 % (0.0-0.4); Lymphocytes Absolute Auto 2.8 X10*3/uL (1.2-4.9); Lymphocytes Percent Auto 35.8 % (20-40); Mean Corpuscular HGB Conc 32.8 g/dl (31.0-35.0); Mean Corpuscular Hemoglobin 27.3 pg (27.0-33.0); Mean Corpuscular Volume 83.4 fL (80.0-98.0); Mean Platelet Volume 9.5 fL (9.4-12.3); Monocytes Absolute Auto 0.5 X10*3/uL (0.1-1.2); Monocytes Percent Auto 6.3 % (2-11); Neutrophils Absolute Auto 4.4 x10*3/uL (2.0-8.3); Platelet Count 384 X10*3/uL (160-400); Red Blood Count 5.12 X10*6/uL (4.20-5.50); Red Cell Distribution Width 13.9 % (11.0-16.0); White Blood Count 7.9 X10*3/uL (4.8-10.8)
[2022-04-09 09:12] LABS: Alanine Aminotransferase 10 U/L (0-31); Albumin Level 4.4 g/dL (3.5-5.0); Alkaline Phosphatase 108 U/L (39-117); Anion Gap 14 (12-20); Aspartate Amino Transferase 15 U/L (5-31); Bilirubin Total 0.5 mg/dL (0.0-1.0); Blood Urea Nitrogen 14 mg/dL (9-16); Calcium 9.8 mg/dL (8.4-10.2); Carbon Dioxide 27 mmol/L (22-29); Chloride 105 mmol/L (96-108); Cholesterol 183 mg/dL; Estimated Glomerular Filt Rate > 60; Glucose Random 100 mg/dL (60-115); HDL Cholesterol 62 mg/dL; LDL Cholesterol Calculated 108 mg/dl; Potassium 4.1 mmol/L (3.3-5.1); Sodium 142 mmol/L (135-145); Total Protein 7.7 g/dL (6.5-8.0); Triglycerides 65 mg/dL
[2022-04-09 09:37] LABS: Free T4 (Free Thyroxine) 1.11 ng/dL (0.71-1.85); Insulin 11 uU/mL (2-29); Thyroid Stimulating Hormone 2.28 uIU/mL (0.32-4.0); Vitamin D 25-OH Total 24.5 ng/mL (>30)
[2022-04-09 09:40] LABS: Folate 13.6 ng/mL (> or = 4.0); Vitamin B12 392 pg/mL (200-900)
[2022-04-10 23:08] LABS: C Peptide 2.32 ng/mL (0.80-3.85)
[2022-04-16 05:14] LABS: Proinsulin 12.8 pmol/L (< OR = 18.8)
[2022-04-17 19:09] LABS: Beta-Hydroxybutyrate 0.04 mmol/L
== END 2022-04-09 07:49 | disposition home or self-care (01) ==
LOC: HO.LAB 07:48
PROVIDERS: PCP Internal Medicine; Visit Provider Internal Medicine
DX: M79.89 Other specified soft tissue disorders (principal); E78.00 Pure hypercholesterolemia, unspecified
CPT/HCPCS: 36415; 80053; 80061; 82010; 82306; 82607; 82746; 83525; 84206; 84439; 84443; 84681; 85025

== ENCOUNTER 2022-09-25 11:56 | Outpatient (REF) | payer OTHER, SELFPAY ==
[2022-09-25 12:14] LABS: MANUAL DIFF FLAG NO
[2022-09-25 13:04] LABS: Basophils Absolute Auto 0.1 X10*3/uL (0.0-0.2); Basophils Percent Auto 0.7 % (0-2); Eosinophils Absolute Auto 0.1 X10*3/uL (0.0-0.4); Eosinophils Percent Auto 1.8 % (0-4); Hematocrit 38.5 % (37.0-47.0); Hemoglobin 12.8 g/dl (12.0-16.0); Imm Gran Abs Auto 0.01 X10*3/uL (0.00-0.03); Imm Gran Pct Auto 0.1 % (0.0-0.4); Lymphocytes Absolute Auto 3.1 X10*3/uL (1.2-4.9); Lymphocytes Percent Auto 42.2 % (20-40); Mean Corpuscular HGB Conc 33.2 g/dl (31.0-35.0); Mean Corpuscular Hemoglobin 27.5 pg (27.0-33.0); Mean Corpuscular Volume 82.8 fL (80.0-98.0); Mean Platelet Volume 9.5 fL (9.4-12.3); Monocytes Absolute Auto 0.4 X10*3/uL (0.1-1.2); Neutrophils Absolute Auto 3.6 x10*3/uL (2.0-8.3); Neutrophils Percent Auto 49.2 % (45-73); Platelet Count 314 X10*3/uL (160-400); Red Blood Count 4.65 X10*6/uL (4.20-5.50); Red Cell Distribution Width 13.1 % (11.0-16.0); White Blood Count 7.3 X10*3/uL (4.8-10.8)
[2022-09-25 13:25] LABS: Estimated Average Glucose 108 mg/dL; Hemoglobin A1c % 5.4 %
[2022-09-25 13:49] LABS: Appearance Urine Clear; Color Urine Yellow; Glucose Urine UA Negative (Negative); Leukocyte Esterase Urine Negative (Negative); Nitrite Urine Negative (Negative); PH 7.5 (5.0-9.0); Specific Gravity - Urine 1.015 (1.005-1.025); Urine Blood Negative (Negative); Urine Ketones Negative (Negative); Urine Protein Negative (Neg-Trace)
[2022-09-25 13:52] LABS: Bacteria Urine None Seen (None Seen); Hyaline Casts Urine 0-2 /LPF (0-2); RBC Urine 0-2 /HPF (0-2); Squamous Epithelial Cell Urine 0-2 /HPF (0-2); WBC Urine 0-5 /HPF (0-5)
[2022-09-25 14:28] LABS: Alanine Aminotransferase 14 U/L (0-31); Albumin Level 3.9 g/dL (3.5-5.0); Alkaline Phosphatase 86 U/L (39-117); Anion Gap 12 (12-20); Aspartate Amino Transferase 21 U/L (5-31); Bilirubin Total 0.5 mg/dL (0.0-1.0); Blood Urea Nitrogen 11 mg/dL (9-16); Calcium 9.8 mg/dL (8.4-10.2); Carbon Dioxide 30 mmol/L (22-29); Chloride 107 mmol/L (96-108); Cholesterol 157 mg/dL; Estimated Glomerular Filt Rate > 60; Glucose Random 95 mg/dL (60-115); HDL Cholesterol 48 mg/dL; LDL Cholesterol Calculated 75 mg/dl; Potassium 3.6 mmol/L (3.3-5.1); Sodium 145 mmol/L (135-145); Triglycerides 171 mg/dL
[2022-09-25 14:47] LABS: Free T4 (Free Thyroxine) 0.94 ng/dL (0.71-1.85); Thyroid Stimulating Hormone 2.13 uIU/mL (0.32-4.0); Vitamin D 25-OH Total 37.8 ng/mL (>30)
[2022-09-25 14:50] LABS: Folate 9.3 ng/mL (> or = 4.0); Vitamin B12 280 pg/mL (200-900)
== END 2022-09-25 11:57 | disposition home or self-care (01) ==
LOC: HO.LAB 11:56
PROVIDERS: PCP Internal Medicine; Visit Provider Internal Medicine
DX: K21.9 Gastro-esophageal reflux disease without esophagitis (principal); E66.01 Morbid (severe) obesity due to excess calories; E78.00 Pure hypercholesterolemia, unspecified; D47.9 Neoplasm of uncertain behavior of lymphoid, hematopoietic and related tissue, unspecified; E16.2 Hypoglycemia, unspecified; E55.9 Vitamin D deficiency, unspecified
CPT/HCPCS: 36415; 80053; 80061; 81001; 82306; 82607; 82746; 83036; 84439; 84443; 85025

== ENCOUNTER 2023-01-29 09:05 | Outpatient (AMB) | payer OTHER, SELFPAY ==
--- NOTE | 2023-01-29 09:10 | AM.OFFVISNUR ---
Intake Intake Visit Reasons: flu shot Allergies No Known Allergies Allergy (Verified 06/23/22 16:09) Office Procedures Flu Questionnaire Does the patient have a severe egg allergy?: No Does the patient have severe life threatening allergies?: No Does the patient have a fever or illness today?: No Has the patient ever had Guillain-Norwood Syndrome?: No Has the patient ever had any past reaction to a flu shot?: No Immunizations flu vacc [id number] 6mos up(PF) 60 mcg(15 mcgx4)/0.5 mL IM syringe Performing Provider: Tc Hussein MD Performing Location: [facility] Administered by: Randi Chiang RN on 01/29/23 09:17 Dose Route Admin Location Dispensed Lot Number Expiration Date NDC Tetryl Dissolver Operator 0.5 mL IM Right Deltoid 0.5 mL [id number] 09/13/23 13758-886-82 [employer] VIS Given Date VIS Provided VIS Publication Date 01/29/23 Single Vaccine 20 Eligibility Eligibility Date Funding Source Not [facility] Eligible 01/29/23 Private Coding Assessment & Plan Assessment & Plan Orders: Orders T Spot TB Today Z23 - Encounter for immunization Influenza [id number] Immunization Today Z23 - Encounter for immunization
== END 2023-01-29 09:18 | disposition home or self-care (01) ==
PROVIDERS: PCP Internal Medicine; Visit Provider Internal Medicine
DX: Z23 Encounter for immunization (principal)
CPT/HCPCS: 90471; 90686

== ENCOUNTER 2023-01-29 09:20 | Outpatient (REF) | payer OTHER, SELFPAY ==
[2023-01-31 17:04] LABS: TS Negative Control Passed; TS Panel A 1; TS Panel B 0; TS Positive Control Passed; TSpotTB Negative (Negative)
== END 2023-01-29 09:21 | disposition home or self-care (01) ==
LOC: HO.LAB 09:20
PROVIDERS: PCP Internal Medicine; Visit Provider Internal Medicine
DX: Z11.1 Encounter for screening for respiratory tuberculosis (principal)
CPT/HCPCS: 36415; 86481

== ENCOUNTER 2023-02-09 10:03 | Outpatient (REF) | payer OTHER, SELFPAY ==
[2023-02-09 11:52] LABS: HBS Num1 10.96 mIU/mL (0-7.99); HBc Num1 0.13 S/CO (0.00-0.79); Hepatitis B Core Antibody Nonreactive (Nonreactive); Hepatitis B Surface Antigen Negative (Negative); ~HepC Num1 0.11 S/CO (0.00-0.79); ~Hepatitis C Antibody Nonreactive (Nonreactive)
[2023-02-09 12:40] LABS: HBS Num2 11.06 mIU/mL (0-7.99); HBS Num3 10.67 mIU/mL (0-7.99); ~Hepatitis B Surface Antibody GRAYZONE (Nonreactive)
[2023-02-10 06:23] LABS: Rubella IgG Antibody 4.27 Index
[2023-02-10 08:49] LABS: Rubeola IgG (Measles) >300.00 AU/mL; Varicella IgG Antibody >4000.00 index
== END 2023-02-09 10:04 | disposition home or self-care (01) ==
LOC: HO.LAB 10:03
PROVIDERS: PCP Internal Medicine; Visit Provider Internal Medicine
DX: Z02.0 Encounter for examination for admission to educational institution (principal); R79.89 Other specified abnormal findings of blood chemistry
CPT/HCPCS: 36415; 86704; 86706; 86735; 86762; 86765; 86787; 86803; 87340

== ENCOUNTER 2023-02-11 13:07 | Outpatient (AMB) | payer OTHER, SELFPAY ==
--- NOTE | 2023-02-11 13:13 | AM.OFFVISNUR ---
Intake Intake Visit Reasons: Hep B Vaccine Allergies No Known Allergies Allergy (Verified 06/23/22 16:09) Immunizations Engerix-B (PF) 20 mcg/mL intramuscular syringe Performing Provider: Tc Hussein MD Performing Location[facility] Administered by: Randi Chiang RN on 02/11/23 13:23 Dose Route Admin Location Dispensed Lot Number Expiration Date NDC Phlebotomy Lab Assistant 1 mL IM Left Deltoid 1 mL [id number] 08/16/23 61255-587-77 First To File VIS Given Date VIS Provided VIS Publication Date 02/11/23 Single Vaccine 22 Eligibility Eligibility Date Funding Source Not [facility] Eligible 02/11/23 Private Coding Assessment & Plan Assessment & Plan Orders: Orders Hepatitis B Adult Immunization Today Z23 - Encounter for immunization
== END 2023-02-11 13:29 | disposition home or self-care (01) ==
PROVIDERS: PCP Internal Medicine; Visit Provider Internal Medicine
DX: Z23 Encounter for immunization (principal)
CPT/HCPCS: 90471; 90746

== ENCOUNTER 2023-06-09 09:21 | Outpatient (AMB) | payer OTHER, SELFPAY ==
[2023-06-09 09:23] VITALS: BP 116/82; PULSE 66; O2SAT 96; BMI 42.1
--- NOTE | 2023-06-09 09:23 | MHC.PC.OV ---
Vital Signs 06/09/23 09:23 Height 5 ft 2 in Weight 230 lb 0.4 oz BMI 42.1 BP 116/82 Blood Pressure Location Lt brachial Position Sitting Pulse 66 Pulse Source Pulse Oximeter Temp Source Skin Pulse Oximetry (%) 96 Oxygen Delivery Method Room Air Intake Visit Reasons: RT knee pain Intake Note: pt states right knee pain X1 month, no injury or fall. 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 Last seen in April 2022 for physical exam at that time. Patient's mammogram is due Cologuard is up-to-date. asthma in a month 3 x uses. 1 month ago states was walking and states woke up on the floor nobody with her? syncope , R knee pain. states had R knee surgery 24 years ago does complains of bilateral hip pain discussed about her weight discussed about joint pains that she is heavy she states she has not been eating a lot but on the other hand she does not move a lot also and hence the weight gain. Patient has a BMI of 42. Discussed with her that yes day will be pain in the joints PFSH Medical History (Updated 06/09/23 @ 10:20 by Tc Hussein MD) Colon cancer screening Colonoscopy refused Hypoglycemia Foot pain Asthma exacerbation GERD (gastroesophageal reflux disease) Morbid obesity Vitamin D deficiency Non-toxic multinodular goiter Surgical History (Updated 01/01/22 @ 16:10 by Melania Flores MD) Hx of biopsy History of esophagogastroduodenoscopy (EGD) Hx of tonsillectomy Hx of tubal ligation Family History (Updated 04/17/22 @ 15:45 by Tc Hussein MD) Mother Asthma Father Heart attack High blood pressure Social History (Updated 01/01/22 @ 15:11 by Meredith Krishnan) Household Members: None Housing: Apartment Alcohol intake: never Comment: medicated in pacu Patient Tobacco Use Status: Never used Tobacco e-Cigarette/Vaping Use: Never Used Second Hand Smoke Exposure: No service: No Current occupational status: employed Cognitive needs: No Hearing needs: No Vision needs: No Questionnaire PHQ-9 Over the last 2 weeks, how often have you been bothered by any of the following problems? 1. Little interest or pleasure in doing things: not at all 2. Feeling down, depressed, or hopeless: not at all 3. Trouble falling or staying asleep, or sleeping too much: not at all 4. Feeling tired or having little energy: not at all 5. Poor appetite or overeating: not at all 6. Feeling bad about yourself - or that you are a failure or have let yourself or your family down: not at all 7. Trouble concentrating on things, such as reading the newspaper or watching television: not at all 8. Moving or speaking so slowly that other people could have noticed. Or the opposite - being so fidgety or restless that you have been moving around a lot more than usual: not at all 9. Thoughts that you would be better off or of hurting yourself in some way: not at all Total score: 0 Depression Screening Interpretation: Negative Depression Screening Done: Yes Source: Developed by Drs. Aj Scott, Aliyah Alexander, Barron Hargrove and colleagues, with an educational alek from [employer]. Thrive Questionnaire Date Thrive assessed: 06/09/23 I am a: Patient What is your living situation today?: I have a steady place to live Within the past 12 months, did the food you bought not last and you didn't have the money to get more?: Never true Within the past 12 months, did you worry whether your food would run out before you got money to buy more?: Never true Do you have trouble paying for medicines?: No Do you have trouble getting transportation to medical appointments?: No Do you have trouble paying your heating and electricity bill?: No Do you have trouble taking care of your child, family member or friend?: No Do you have trouble with day-to-day activities such as bathing, preparing meals, shopping, managing finances, etc.?: No Are you currently unemployed and looking for a job?: No Are you interested in more education?: No Please select the resources that you would like help with: None Currently or been in a relationship where the following occur: no concerns reported THRIVE Score: 0 AUDIT C Alcohol Use Questionnaire (AUDIT-C) 1. How often do you have a drink containing alcohol?: Never 2. How many drinks containing alcohol do you have on a typical day when you are drinking?: 1 or 2 (0) 3. How often do you have six or more drinks on one occasion?: Never Total Score: 0 DAYRON-7 AMB Questionnaire DAYRON-7 Date DAYRON - 7 assessed: 06/09/23 Source: Developed by Drs. Aj Scott, Aliyah Alexander, Barron Hargrove and colleagues, with an educational alek from [employer]. Physical exam (Primary Care) Vital Signs: Last Vital Signs Pulse 66 06/09/23 09:23 BP 116/82 06/09/23 09:23 Pulse Ox 96 06/09/23 09:23 Oxygen Delivery Method Room Air 06/09/23 09:23 BMI result Body Mass Index 42.1 Tobacco/Smoking Status: Tobacco use Status Tobacco use date assessed 06/09/23 06/09/23 09:25 Patient Tobacco Use Status Never used Tobacco 06/09/23 09:25 e-Cigarette/Vaping Use Never Used 06/09/23 09:25 PHQ-9: PHQ-9 Score PHQ-9: Total score 0 06/09/23 09:25 Depression Screening Interpretation: Negative Thrive Assessment: Date of Thrive Assessment Date Thrive assessed 06/09/23 06/09/23 09:25 Currently or been in a relationship where the following occur: no concerns reported Const General: alert; No acute distress Eyes Conjunctivae: conjunctivae normal Resp Auscultation: clear to auscultation bilaterally Cardio Rate: regular rate Rhythm: regular rhythm GI Inspection: Yes normal to inspection Extrem General: Yes normal to inspection and No edema Assessment and Plan Assessment & Plan (1) Morbid obesity: Comment: BMI at 42.4 on (07/26/20), 41.2 on (10/30/20) 42.14 May 2022 Code(s): E66.01 - Morbid (severe) obesity due to excess calories Plan: Diet and exercise (2) GERD (gastroesophageal reflux disease): Code(s): K21.9 - Gastro-esophageal reflux disease without esophagitis Plan: Avoid the foods that causes that usually spicy foods, tomato products, juices, coffee, soda and foods that your sensitive to. After eating do not lie down, allow 3-4 hours before in lie down. And keep the head of bed above 30 degrees to avoid the acid from going up. On omeprazole (3) Asthma: Code(s): J45.909 - Unspecified asthma, uncomplicated Plan: Patient on Ventolin (4) Generalized anxiety disorder: Code(s): F41.1 - Generalized anxiety disorder Plan: Continue with present medication (5) Migraine: Code(s): G43.909 - Migraine, unspecified, not intractable, without status migrainosus Plan: Continue with migraine medication. (6) Bilateral knee pain: Code(s): M25.561 - Pain in right knee; M25.562 - Pain in left knee Plan: Discussed that this most likely will be osteoarthritis. X-rays to be done to determine severity and orthopedic referral (7) Bilateral hip pain: Code(s): M25.551 - Pain in right hip; M25.552 - Pain in left hip Plan: X-rays requested to determine the severity of osteoarthritis (8) Syncope: Code(s): R55 - Syncope and collapse Plan: Workup requested. Orders: Orders XR hip BI w PEL1V Today M25.551 - Pain in right hip, M25.552 - Pain in left hip XR knee standing BI Today M25.561 - Pain in right knee, M25.562 - Pain in left knee Complete Blood Count Auto Diff Today R55 - Syncope and collapse Comprehensive Met. Panel Today R55 - Syncope and collapse Free T4 (Free Thyroxine) Today R55 - Syncope and collapse ECG 12 lead EKG Today R55 - Syncope and collapse Thyroid Stimulating Hormone Today R55 - Syncope and collapse Referrals Orthopedics Referral M25.561 - Pain in right knee, M25.562 - Pain in left knee Coding Level of Care Code Est Pt Level 4 (66617) Diagnoses Morbid obesity E66.01 GERD (gastroesophageal reflux disease) K21.9 Asthma J45.909 Generalized anxiety disorder F41.1 Migraine G43.909 Bilateral knee pain M25.561; M25.562 Bilateral hip pain M25.551; M25.552 Syncope R55
== END 2023-06-09 11:15 | disposition home or self-care (01) ==
PROVIDERS: PCP Internal Medicine; Visit Provider Internal Medicine
DX: K21.9 Gastro-esophageal reflux disease without esophagitis (principal); E66.01 Morbid (severe) obesity due to excess calories; Z68.41 Body mass index [BMI] 40.0-44.9, adult; J45.909 Unspecified asthma, uncomplicated; F41.1 Generalized anxiety disorder; G43.909 Migraine, unspecified, not intractable, without status migrainosus; M25.561 Pain in right knee; M25.562 Pain in left knee; M25.551 Pain in right hip; M25.552 Pain in left hip; R55 Syncope and collapse
CPT/HCPCS: 99214

== ENCOUNTER 2023-06-12 12:43 | Outpatient (REF) | payer OTHER, SELFPAY ==
--- NOTE | ~2023-06-12 | XR_ITS ---
EXAMINATION: XR KNEE, RIGHT XR KNEE AP STANDING CLINICAL INFORMATION: Pain. COMPARISON: Radiographs dated 06/23/2006 (report only). TECHNIQUE: Frontal, lateral and axial views of the right knee are submitted. AP bilateral standing view of the knees was obtained. FINDINGS: Bony alignment and mineralization are normal. The lateral and medial joint space compartments are well-maintained. There is mild narrowing of the patellofemoral compartment laterally. There are tiny peripheral osteophytes of the upper and lower articular surfaces of the patella. A small enthesophyte is seen at the upper pole of the patella at the quadriceps tendon insertion. No fracture or dislocation is seen. There is a small joint effusion. There is no focal soft tissue swelling, gas or foreign body. The lateral and medial joint space compartments of the left knee are well-maintained. No significant varus or valgus configuration is seen bilaterally. XR/XR knee standing BI IMPRESSION: 1. There is mild osteoarthritic change of the right patellofemoral compartment. 2. There is a small right knee joint effusion. 3. The lateral and medial joint space compartments of the left knee are well-maintained. 4. No fracture or dislocation is seen bilaterally.
--- NOTE | ~2023-06-12 | XR_ITS ---
EXAMINATION: XR KNEE, RIGHT XR KNEE AP STANDING CLINICAL INFORMATION: Pain. COMPARISON: Radiographs dated 06/23/2006 (report only). TECHNIQUE: Frontal, lateral and axial views of the right knee are submitted. AP bilateral standing view of the knees was obtained. FINDINGS: Bony alignment and mineralization are normal. The lateral and medial joint space compartments are well-maintained. There is mild narrowing of the patellofemoral compartment laterally. There are tiny peripheral osteophytes of the upper and lower articular surfaces of the patella. A small enthesophyte is seen at the upper pole of the patella at the quadriceps tendon insertion. No fracture or dislocation is seen. There is a small joint effusion. There is no focal soft tissue swelling, gas or foreign body. The lateral and medial joint space compartments of the left knee are well-maintained. No significant varus or valgus configuration is seen bilaterally. XR/XR knee RT 4V IMPRESSION: 1. There is mild osteoarthritic change of the right patellofemoral compartment. 2. There is a small right knee joint effusion. 3. The lateral and medial joint space compartments of the left knee are well-maintained. 4. No fracture or dislocation is seen bilaterally.
--- NOTE | ~2023-06-12 | XR_ITS ---
EXAMINATION: XR BILATERAL HIPS WITH AP PELVIS CLINICAL INFORMATION: Right hip pain. COMPARISON: Pelvic radiographs dated 08/21/2016; portions of the MRI left hip dated 08/29/2016. TECHNIQUE: AP view of the pelvis and AP and frog-leg lateral views of each hip were obtained. FINDINGS: Bony alignment and mineralization are normal. The acetabular joint spaces are relatively well-maintained. The bilateral acetabular roofs show mild peripheral osteophyte formation and lateral articular surface irregularity. The femoral heads are smooth. There is no fracture or dislocation. The sacroiliac joints are symmetric and well-maintained. The pubic symphysis is intact. There are pelvic phleboliths. No foreign body is seen. XR/XR hip BI w PEL1V IMPRESSION: There is mild degenerative change of the hips. No fracture or dislocation is seen
--- NOTE | 2023-06-12 12:48 | ECG_ITS ---
Test Reason : syncope and collapse Blood Pressure : / mmHG Vent. Rate : 059 BPM Atrial Rate : 059 BPM P-R Int : 140 ms QRS Dur : 082 ms QT Int : 438 ms P-R-T Axes : 059 -38 019 degrees QTc Int : 433 ms Sinus bradycardia Left axis deviation Minimal voltage criteria for LVH, may be normal variant ( R in aVL ) Abnormal ECG When compared with ECG of 19-MAR-2016 19:57, Vent. rate has decreased BY 35 BPM QT has shortened Referred By: Tc Hussein Electronically Signed By:Oscar Shepard
[2023-06-12 12:50] LABS: MANUAL DIFF FLAG NO
[2023-06-12 12:56] LABS: Basophils Absolute Auto 0.1 X10*3/uL (0.0-0.2); Basophils Percent Auto 0.6 % (0-2); Eosinophils Absolute Auto 0.2 X10*3/uL (0.0-0.4); Hematocrit 40.8 % (37.0-47.0); Hemoglobin 13.7 g/dl (12.0-16.0); Imm Gran Abs Auto 0.02 X10*3/uL (0.00-0.03); Imm Gran Pct Auto 0.2 % (0.0-0.4); Lymphocytes Absolute Auto 4.5 X10*3/uL (1.2-4.9); Lymphocytes Percent Auto 45.2 % (20-40); Mean Corpuscular HGB Conc 33.6 g/dl (31.0-35.0); Mean Corpuscular Hemoglobin 27.6 pg (27.0-33.0); Mean Corpuscular Volume 82.3 fL (80.0-98.0); Mean Platelet Volume 8.8 fL (9.4-12.3); Monocytes Absolute Auto 0.6 X10*3/uL (0.1-1.2); Monocytes Percent Auto 5.9 % (2-11); Neutrophils Absolute Auto 4.6 x10*3/uL (2.0-8.3); Neutrophils Percent Auto 46.1 % (45-73); Platelet Count 357 X10*3/uL (160-400); Red Blood Count 4.96 X10*6/uL (4.20-5.50); Red Cell Distribution Width 13.7 % (11.0-16.0)
[2023-06-12 13:38] LABS: Alanine Aminotransferase 15 U/L (0-31); Alkaline Phosphatase 97 U/L (39-117); Anion Gap 10 (12-20); Aspartate Amino Transferase 34 U/L (5-31); Bilirubin Total 0.4 mg/dL (0.0-1.0); Blood Urea Nitrogen 15 mg/dL (9-16); Calcium 9.7 mg/dL (8.4-10.2); Carbon Dioxide 30 mmol/L (22-29); Chloride 106 mmol/L (96-108); Estimated Glomerular Filt Rate > 60; Glucose Random 105 mg/dL (60-115); Potassium 4.2 mmol/L (3.3-5.1); Sodium 142 mmol/L (135-145); Total Protein 7.8 g/dL (6.5-8.0)
[2023-06-12 13:52] LABS: Free T4 (Free Thyroxine) 0.96 ng/dL (0.71-1.85); Thyroid Stimulating Hormone 1.31 uIU/mL (0.32-4.0)
== END 2023-06-12 12:44 | disposition home or self-care (01) ==
LOC: HO.LAB 12:43
PROVIDERS: PCP Internal Medicine; Visit Provider Internal Medicine
DX: R55 Syncope and collapse (principal); M25.551 Pain in right hip; M25.552 Pain in left hip; M25.561 Pain in right knee; M25.562 Pain in left knee
CPT/HCPCS: 36415; 73521; 73564; 73565; 80053; 84439; 84443; 85025; 93005

== ENCOUNTER → 2023-06-12 12:48 | Outpatient (BNV) | payer OTHER, SELFPAY | PROVIDERS: PCP Internal Medicine; Visit Provider Internal Medicine Cardiovascular Disease | DX: R55 Syncope and collapse (principal) | CPT/HCPCS: 93010 ==

== ENCOUNTER 2023-06-19 13:56 | Outpatient (AMB) | payer OTHER, SELFPAY ==
--- NOTE | 2023-06-19 14:00 | A.OFFVIS_ITS ---
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 Patient reports she fell in ground one month ago, pt states swollen in back of right knee and bilateral hip pain, left ankle swollen and painful , no sleeping well. Hx of right knee surgery 20+ years (partial R-Knee cap removal). 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 Patient was referred to our office by her PCP status post waking up on the floor with right knee pain. X-rays of the bila teral knees was obtained. While in the office the patient reports she fell on the ground about a month ago. She claims to have edema on the posterior aspect of the right knee. Patient reports having a surgical history of right knee partial knee cap removal 25 years ago (1998). Patient reports bilateral hip pain. She also reports left ankle edema with pain. Patient states she does not sleep well. [facility] Medical History Colon cancer screening Colonoscopy refused Hypoglycemia Foot pain Asthma exacerbation GERD (gastroesophageal reflux disease) Morbid obesity Vitamin D deficiency Non-toxic multinodular goiter Surgical History Hx of biopsy History of esophagogastroduodenoscopy (EGD) Hx of tonsillectomy Hx of tubal ligation Family History Mother Asthma Father Heart attack High blood pressure Social History Household Members: None Housing: Apartment Alcohol intake: never Comment: medicated in pacu Patient Tobacco Use Status: Never used Tobacco e-Cigarette/Vaping Use: Never Used Second Hand Smoke Exposure: No service: No Current occupational status: employed Cognitive needs: No Hearing needs: No Vision needs: No Review of Systems Const All systems reviewed & are unremarkable except as noted in HPI and below Physical Exam Vital Signs: BMI result Body Mass Index 42.1 Const General: cooperative and no acute distress Orientation/consciousness: patient oriented x3 Resp Effort & Inspection: normal respiratory effort and able to speak in complete sentences Cardio Peripheral pulses: Peripheral pulses 2+ throughout Skin General skin exam: no rashes or lesions noted Neuro General: patient oriented x3 Extrem Other: Right knee: Normal to inspection. No ecchymosis, erythema, or joint effusion. No tenderness to palpation along the medial joint line. Tenderness to palpation along the lateral joint line. Tenderness to palpation with patella grind. Full knee extension and flexion. Negative Gareth's. Negative anterior drawer. NVI. Assessment & Plan Assessment & Plan (1) Contusion of right knee: Code(s): S80.01XA - Contusion of right knee, initial encounter Qualifiers: Encounter type: initial encounter Qualified Code(s): S80.01XA - Contusion of right knee, initial encounter (2) Osteoarthritis of right knee: Code(s): M17.11 - Unilateral primary osteoarthritis, right knee Qualifiers: Osteoarthritis type: unspecified Qualified Code(s): M17.11 - Unilateral primary osteoarthritis, right knee (3) Synovial cyst of popliteal space [Ge], right knee: Code(s): M71.21 - Synovial cyst of popliteal space [Ge], right knee Plan Ms. Baptiste is a 52-year-old female who presents in the office today, as a new pa tient, for an evaluation of right knee pain. Patient was referred to our office by her PCP status post waking up on the floor with right knee pain. X-rays of the bilateral knees was obtained. While in the office the patient reports she fell on the ground about a month ago. She claims to have edema on the posterior aspect of the right knee. Patient reports having a surgical history of right knee partial knee cap removal 25 years ago (1998). Patient reports bilateral hip pain. She also reports left ankle edema with pain. Patient states she does not sleep well. I educated the patient that it may take time for her symptoms to resolve. She reports tightness in the back of her right knee, which could be related to a Ge?s cyst caused by the irritation within the knee from her fall. If her symptoms do not resolve over the next 8 weeks she will contact the office for possible cortisone injection. Otherwise, she will follow up PRN, or sooner if needed. X-rays of the right knee which were obtained while in the office today and were reviewed by me, Adore Seals PA-C, revealed no acute fracture or dislocation. Significant for osteoarthritis. X-rays obtained on 06/12/2023 were reviewed by me in the office today. Orders: Orders XR knee RT 3V 06/19/23 M25.569 - Pain in unspecified knee Patient Instructions: Scribed by Janet Giraldo certified medical aide, for Adore Seals PA-C on 06/19/2023 at 2:03 pm, EST. Coding Level of Care Code New Pt Level 4 (02039) Diagnoses Contusion of right knee, initial encounter S80.01XA Encounter type: initial encounter Osteoarthritis of right knee, unspecified osteoarthritis type M17.11 Osteoarthritis type: unspecified Synovial cyst of popliteal space [Ge], right knee M71.21
[2023-06-19 14:02] VITALS: BMI 42.1
== END 2023-06-19 15:47 | disposition home or self-care (01) ==
LOC: HO.HOS 13:56
PROVIDERS: PCP Internal Medicine; Visit Provider Physician Assistant
DX: S80.01XA Contusion of right knee, initial encounter (principal); M17.11 Unilateral primary osteoarthritis, right knee; M71.21 Synovial cyst of popliteal space [Baker], right knee
CPT/HCPCS: 99203

== ENCOUNTER 2023-06-19 14:03 | Outpatient (REF) | payer OTHER, SELFPAY | END 2023-06-19 14:04 | disposition home or self-care (01) | LOC: HO.HOSX 14:03 | PROVIDERS: Visit Provider Physician Assistant | DX: S80.01XA Contusion of right knee, initial encounter (principal) | CPT/HCPCS: 99202 ==

== ENCOUNTER 2023-07-16 09:18 | Outpatient (REF) | payer OTHER, SELFPAY ==
--- NOTE | ~2023-07-16 | XR_ITS ---
EXAMINATION: XR ANKLE, LEFT CLINICAL INFORMATION: Pain in unspecified ankle. COMPARISON: Left foot 10/18/2020. TECHNIQUE: AP, lateral, and mortise views of the left ankle. FINDINGS: Diffuse soft tissue swelling at the ankle with moderate joint effusion. Mild dorsal and plantar calcaneal spurring. Redemonstration of large os trigonum. Ankle mortise is maintained. XR/XR ankle LT min 3V IMPRESSION: 1. Diffuse soft tissue swelling at the ankle with moderate joint effusion. 2. Mild dorsal and plantar calcaneal spurring. 3. Redemonstration of large os trigonum. 4. Recommend follow up imaging in 10-14 days if fracture is suspected.
== END 2023-07-16 09:19 | disposition home or self-care (01) ==
LOC: HO.HOSX 09:18
PROVIDERS: Visit Provider Physician Assistant
DX: M25.572 Pain in left ankle and joints of left foot (principal); R60.0 Localized edema
CPT/HCPCS: 73610; 99212

== ENCOUNTER 2023-07-16 14:17 | Outpatient (AMB) | payer OTHER, SELFPAY ==
--- NOTE | 2023-07-16 14:33 | MHC.OFFVIS ---
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 No hx of injury or Previous treatment. Patient reports ongoing pain for many months. She states that she has a cold sensation in her ankle and having throbbing pain. Pain is was when she is resting and when she is walking. Patient expresses that she feels its unstable. 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 Patient reports ongoing pain for many months. She describes her pain as throbbing with pain present when resting and ambulating. She states the ankle feels unstable. Patient reports her ankle has been hurting chronically since she was seen for her bilateral knees in 06/19/2023. She states the ankle feels warm to the touch when she feels the internal temperature of the ankle is cold. Confirms edema in the left ankle. She states the left ankle is always bigger than the right ankle. She states she told her other provider who told her it was normal. She also reports intermittent softness and hardness in the ankle. Patient denies a history of diabetes. [facility] Medical History Colon cancer screening Colonoscopy refused Hypoglycemia Foot pain Asthma exacerbation GERD (gastroesophageal reflux disease) Morbid obesity Vitamin D deficiency Non-toxic multinodular goiter Surgical History Hx of biopsy History of esophagogastroduodenoscopy (EGD) Hx of tonsillectomy Hx of tubal ligation Family History Mother Asthma Father Heart attack High blood pressure Social History (Updated 07/16/23 @ 14:37 by Raj Lloyd) Household Members: None Housing: Apartment Alcohol intake: never Comment: medicated in pacu Patient Tobacco Use Status: Never used Tobacco e-Cigarette/Vaping Use: Never Used Second Hand Smoke Exposure: No service: No Current occupational status: unemployed Cognitive needs: No Hearing needs: No Vision needs: No Review of Systems Const All systems reviewed & are unremarkable except as noted in HPI and below Physical Exam Const General: cooperative, healthy appearing and no acute distress Resp Effort & Inspection: normal respiratory effort and able to speak in complete sentences Cardio Rate: regular rate Peripheral pulses: Peripheral pulses 2+ throughout GI Palpation (GI): Soft to palpation Skin Lesions: no lesions Rashes: no rashes Extrem Other: Left ankle: Normal to inspection. No ecchymosis or erythema. Mild edema compared to the contralateral lower extremity. Patient is able to demonstrate dorsiflexion, plantar flexion, pronation and supination. Negative anterior drawer. Sensation intact. Pedal Pulse intact. Assessment & Plan Assessment & Plan (1) Edema of left lower extremity: Code(s): R60.0 - Localized edema Category: Medical Plan Ms. Baptiste is a 52-year-old female who presents in the office today for an evaluation of left ankle pain. Patient reports ongoing pain for many months. She describes her pain as throbbing with pain present when resting and ambulating. She states the ankle feels unstable. Patient reports her ankle has been hurting chronically since she was seen for her bilateral knees in 06/19/2023. She states the ankle feels warm to the touch when she feels the internal temperature of the ankle is cold. Confirms edema in the left ankle. She states the left ankle is always bigger than the right ankle. She states she told her other provider who told her it was normal. She also reports intermittent softness and hardness in the ankle. Patient denies a history of diabetes. A referral to vascular was placed in the office today to further evaluate the edema and cold sensation in the left ankle. I instructed the patient that if Vascular clears her she should call to schedule an appointment for further evaluation with Orthopedics. Follow up will be PRN, or sooner if needed. X-rays of the left ankle which were obtained while in the office today and were reviewed by me, Adore Seals PA-C, revealed no acute fracture or dislocation. Orders: Orders XR ankle LT min 3V Today M25.579 - Pain in unspecified ankle and joints of unspecified foot Referrals Vascular Surgery Referral M79.89 - Other specified soft tissue disorders Patient Instructions: Scribed by Janet Giraldo medical assistant secretary, for Adore Seals PA-C on 07/16/2023 at 2:30 pm, EST. Coding Level of Care Code Est Pt Level 3 (40809) Diagnoses Edema of left lower extremity R60.0
== END 2023-07-16 14:52 | disposition home or self-care (01) ==
PROVIDERS: PCP Internal Medicine; Visit Provider Physician Assistant
DX: R60.0 Localized edema (principal)
CPT/HCPCS: 99213

== ENCOUNTER 2023-10-09 10:01 | Outpatient (AMB) | payer OTHER, SELFPAY ==
[2023-10-09 10:02] VITALS: BP 118/80; PULSE 64; O2SAT 98; BMI 41.0
--- NOTE | 2023-10-09 10:02 | A.OFFPC_ITS ---
Vital Signs 10/09/23 10:02 Height 5 ft 2 in Weight 224 lb BMI 41.0 BP 118/80 Blood Pressure Location Lt brachial Position Sitting Pulse 64 Pulse Source Pulse Oximeter Pulse Oximetry (%) 98 Oxygen Delivery Method Room Air Intake Visit Reasons: ? 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 Maker: Not Required per policy Accompanied by: Self / Same As Patient Allergies No Known Allergies Allergy (Verified 10/09/23 10:03) Medication List - Last Reconciled 10/09/23 by Tc Hussein MD albuterol sulfate 90 mcg/actuation (Ventolin HFA) 2 puffs inhalation Q4-6H PRN ascorbate calcium (vitamin C) 500 mg PO DAILY cetirizine (All Day Allergy (cetirizine)) 10 mg PO DAILY cholecalciferol (vitamin D3) 50 mcg PO DAILY 90 days fluticasone propionate 50 mcg/actuation 1 spray intranasal BID naproxen 500 mg PO BID PRN omeprazole 20 mg PO DAILY ondansetron 4 mg PO TID PRN Tobacco use date assessed: 06/09/23 Dental Screening Dental Screen Date: 06/09/23 HPI ? syncope knee pain, bilateral hip pain HPI Details 52-year-old morbidly obese female with G ERD asthma generalized anxiety disorder migraine coming in for follow-up. Last seen in May 2023 had a syncopal episode. Patient is due for mammogram. Review of the notes has seen ortho for left ankle pain patient was advised x-ray of the left ankle and vascular surgeons referral. Prior to that has been seen for right knee pain diagnosis of contusion of the right knee with osteoarthritis has been advised to get x-rays of the right knee. [facility], [facility] Medical History Colon cancer screening Colonoscopy refused Hypoglycemia Foot pain Asthma exacerbation GERD (gastroesophageal reflux disease) Morbid obesity Vitamin D deficiency Non-toxic multinodular goiter Surgical History Hx of biopsy History of esophagogastroduodenoscopy (EGD) Hx of tonsillectomy Hx of tubal ligation Family History Mother Asthma Father Heart attack High blood pressure Social History (Updated 07/16/23 @ 14:37 by Raj Barragan Household Members: None Housing: Apartment Alcohol intake: never Comment: medicated in pacu Patient Tobacco Use Status: Never used Tobacco e-Cigarette/Vaping Use: Never Used Second Hand Smoke Exposure: No service: No Current occupational status: unemployed Cognitive needs: No Hearing needs: No Vision needs: No Questionnaire Thrive Questionnaire Date Thrive assessed: 06/09/23 AUDIT C Alcohol Use Questionnaire (AUDIT-C) 1. How often do you have a drink containing alcohol?: Never 2. How many drinks containing alcohol do you have on a typical day when you are drinking?: 1 or 2 (0) 3. How often do you have six or more drinks on one occasion?: Never Total Score: 0 DAYRON-7 AMB Questionnaire DAYRON-7 Date DAYRON - 7 assessed: 06/09/23 Source: Developed by Drs. Aj Scott, Aliyah Alexander, Barron Hagrrove and colleagues, with an educational alek from [employer]. Physical exam (Primary Care) Vital Signs: Last Vital Signs Pulse 64 10/09/23 10:02 BP 118/80 10/09/23 10:02 Pulse Ox 98 10/09/23 10:02 Oxygen Delivery Method Room Air 10/09/23 10:02 BMI result Body Mass Index 41.0 Tobacco/Smoking Status: Tobacco use Status Tobacco use date assessed 06/09/23 10/09/23 10:02 Patient Tobacco Use Status Never used Tobacco 10/09/23 10:02 e-Cigarette/Vaping Use Never Used 10/09/23 10:02 Thrive Assessment: Date of Thrive Assessment Date Thrive assessed 06/09/23 10/09/23 10:02 Const General: alert; No acute distress Eyes Conjunctivae: conjunctivae normal Resp Auscultation: clear to auscultation bilaterally Cardio Rate: regular rate Rhythm: regular rhythm GI Inspection: Yes normal to inspection Extrem General: Yes normal to inspection and No edema Assessment and Plan Assessment & Plan (1) Osteoarthritis of right knee: Code(s): M17.11 - Unilateral primary osteoarthritis, right knee Qualifiers: Osteoarthritis type: unspecified Qualified Code(s): M17.11 - Unilateral primary osteoarthritis, right knee Plan: Patient has been seen by ortho and continuing to monitor on meloxicam for pain (2) Syncope: Code(s): R55 - Syncope and collapse Plan: Workup has been negative (3) Morbid obesity: Comment: BMI at 42.4 on (07/26/20), 41.2 on (10/30/20) 42.14 May 2022 Code(s): E66.01 - Morbid (severe) obesity due to excess calories Plan: Diet and exercise (4) GERD (gastroesophageal reflux disease): Code(s): K21.9 - Gastro-esophageal reflux disease without esophagitis Plan: Avoid the foods that causes that usually spicy foods, tomato products, juices, coffee, soda and foods that your sensitive to. After eating do not lie down, allow 3-4 hours before in lie down. And keep the head of bed above 30 degrees to avoid the acid from going up. (5) Asthma: Code(s): J45.909 - Unspecified asthma, uncomplicated Plan: Patient is on albuterol inhaler to use as needed (6) Generalized anxiety disorder: Comment: [facility] counselling Q week Code(s): F41.1 - Generalized anxiety disorder Plan: Stable continue with counselling (7) Peripheral vascular disease: Code(s): I73.9 - Peripheral vascular disease, unspecified Plan: When sitting down elevate the legs, exercise, and support stockings (8) Trochanteric bursitis of right hip: Code(s): M70.61 - Trochanteric bursitis, right hip Plan: discused about treatment , decline PT. has seen ortho. take with food all the time (9) Mammogram declined: Code(s): Z53.20 - Procedure and treatment not carried out because of patient's decision for unspecified reasons Medications: New naproxen 500 mg PO BID PRN 60 tabs 1RF pain M70.61 - Trochanteric bursitis, right hip Discontinued hydrocortisone-acetic acid 1-2 % Discontinued Reason: Doctor's Order 4 drps otic (ear) left TID 10 mL 0RF meloxicam Discontinued Reason: Patient Refused 15 mg PO DAILY 14 tabs 0RF M25.561 - Pain in right knee, M25.562 - Pain in left knee ubrogepant (Ubrelvy) Discontinued Reason: Doctor's Order 50 mg QD PRN; 30 days 10 tabs 3RF migraine Coding Level of Care Code Est Pt Level 4 (08153) Diagnoses Osteoarthritis of right knee, unspecified osteoarthritis type M17.11 Osteoarthritis type: unspecified Syncope R55 Morbid obesity E66.01 GERD (gastroesophageal reflux disease) K21.9 Asthma J45.909 Generalized anxiety disorder F41.1 Peripheral vascular disease I73.9 Trochanteric bursitis of right hip M70.61 Mammogram declined Z53.20
== END 2023-10-09 13:09 | disposition home or self-care (01) ==
PROVIDERS: PCP Internal Medicine; Visit Provider Internal Medicine
DX: R55 Syncope and collapse (principal); K21.9 Gastro-esophageal reflux disease without esophagitis; I73.9 Peripheral vascular disease, unspecified; J45.909 Unspecified asthma, uncomplicated; F41.1 Generalized anxiety disorder; M70.61 Trochanteric bursitis, right hip
CPT/HCPCS: 99214